=== PATIENT | female | born 1970 | race Caucasian/White ===

== ENCOUNTER 2016-06-12 15:00 | Emergency (ER) | payer SELFPAY ==
--- NOTE | 2016-06-21 06:57 | ER ---
ADMIT: 06/12/2016 RM/LOC: ER [facility] MR#: [id number] [address] [address] WILMAR JUAREZ [address] [place] [address] Emergency Room Report SEX: F AGE: 45 : 1970 DATE: 06/12/2016 ADDENDUM: This patient comes into the ER because she is having a severe migraine that she has had for the last 3 days. It is a normal type migraine for her. She states it is in her forehead and feels like it is behind both eyes. She also feels like her calcium level is really low because she is having numbness all over her body. She has had thyroid cancer and often has hypocalcemia. She is sensitive to light and sound. The patient has a normal physical exam. She is quite anxious. Oral mucosa is dry, but she does answer questions and speaks appropriately and is alert. She was very concerned about her calcium level. I did do a CBC and a BMP, and her calcium came back as 6.7. I did consult with Dr. Lewis concerning treatment of this patient. I plan to give the patient calcium gluconate IV; however, when I went to talk to the patient, she decided that she no longer wanted to be in the ER and wanted to go home. I did discuss with her leg at length. She was one who requested that I check her calcium level because she felt like she needed calcium IV, but she felt like she had been here long enough, and no longer wanted to stay in the ER. She was given Ativan 1 mg IV and Nubain 10 mg IV for her headache. She is to follow up with her doctor and continue with her oral calcium. Please see my T-sheet. JULIA Fernandes / Moisés Lewis MD / reshma JOB #: [id number] CC: Moisés Lewis MD, Attending Physician Marco Antonio Salmeron MD, Family Physician
== END 2016-06-12 16:55 | disposition home or self-care (01) ==
LOC: ER 15:00
DX: R51 Headache (principal); E83.51 Hypocalcemia; Z88.1 Allergy status to other antibiotic agents; Z88.5 Allergy status to narcotic agent

== ENCOUNTER 2016-06-26 17:35 | Emergency (ER) | payer SELFPAY ==
--- NOTE | 2016-06-27 14:07 | NUR ---
Referral from ER to assist with pt obtaining meds and assess for eligibility of other programs. Phone call to the number pt has listed and it ran about 20 times with no answer. Will attempt to call later.
--- NOTE | 2016-07-05 14:11 | ER ---
ADMIT: 06/26/2016 RM/LOC: ER [facility] MR#: [id number] [address] [address] WILMAR JUAREZ [address] [place] [address] Emergency Room Report SEX: F AGE: 45 : 1970 DATE: 06/26/2016 ADDENDUM: This patient comes to the ER because she had a seizure. She has a history of having a seizure disorder and she states most of her seizures are caused because her calcium is low after having thyroid cancer and being hypothyroid. She states she has been feeling like her calcium has been low, having tingling in her muscles. Her mother is with her and states she saw her have a seizure, and when she did, she hit the bathroom tile so hard with her head that it broke the tile. On physical exam, she is alert and oriented and she answers questions and speaks appropriately. She does not appear to be postictal. However, she does have a laceration on her tongue. She does have a contusion on the left side of her scalp. CT of her head and C-spine were negative for any acute findings. Her calcium was 7.6. She states in the past, she has gotten calcium IV which seems the best way to help with her symptoms and we did give her calcium gluconate. She also was given Ativan and Nubain. She is to follow up with her primary. DIAGNOSES: 1. Hypocalcemia. 2. Seizure disorder. 3. Scalp contusion. Please see my T-sheet. JULIA Fernandes / Moisés Lewis MD / reshma JOB #: [id number] CC: Moisés Lewis MD, Attending Physician Andria Varma MD, Family Physician
== END 2016-06-26 22:26 | disposition home or self-care (01) ==
LOC: ER 17:35
DX: S00.03XA Contusion of scalp, initial encounter (principal); G40.909 Epilepsy, unspecified, not intractable, without status epilepticus; E83.51 Hypocalcemia; F41.9 Anxiety disorder, unspecified; F17.210 Nicotine dependence, cigarettes, uncomplicated; Z85.850 Personal history of malignant neoplasm of thyroid; Z88.8 Allergy status to other drugs, medicaments and biological substances; Z79.899 Other long term (current) drug therapy; X58.XXXA Exposure to other specified factors, initial encounter

== ENCOUNTER 2016-08-26 21:50 | Emergency (ER) | payer SELFPAY ==
--- NOTE | 2016-08-30 13:09 | ER ---
ADMIT: 08/26/2016 RM/LOC: ER [facility] MR#: [id number] [address] [address] WILMAR JUAREZ [address] [place] [address] Emergency Room Report SEX: F AGE: 45 : 1970 DATE: 08/26/2016 HISTORY OF PRESENT ILLNESS: The patient is a 45-year-old female with past medical history of thyroid cancer, status post thyroidectomy and hypoparathyroidism with multiple attacks of hypercalcemia and seizure disorder. The patient was brought to the ER with chief complaint of generalized shaking, seizure disorder, which lasted about 2 to 3 minutes. Son at bedside and state its her baseline seizure-type in quality and duration. The patient in the ER had about less than 20 seconds of seizure-like activity and after that was postictal, airway was protected, there were no obvious signs of trauma and the patient did not fall and did not hit the head. PHYSICAL EXAMINATION: GENERAL: The patient was afebrile, fingerstick blood sugar was normal. HEAD AND NECK: Pupils are 3 mm reactive to light, the patient still is postictal and could not answer the question well, is confused. Neck is soft. CHEST: Clear bilaterally. HEART: Normal heart sounds. ABDOMEN: Soft. I did not see any spasms or contractures. The patient at the moment does not follow the commands. After the postictal was resolved about 20 minutes, I rechecked the patient. The patient was alert and oriented. Answering all the questions and did not complain of any trauma. The patient complains of moderate headache in the frontal area, which per the patient she had always had after the seizure attack. Son at the bedside and states the postictal duration and type of the seizure is very similar to all the previous seizures. The patient states the last few days she took the calcium supplements on and off and states that the last few days also she felt some numbness and tingling of the upper extremities. Further investigation showed the patient has white BC of 10.5 with hemoglobin of 14.1, and the patient has sodium of 136, potassium 3.6 with creatinine of 1.5, glucose of 161, and calcium level of 7.2. The rest of the lab works was noncontributory. The patient was offered ADMIT: 08/26/2016 RM/LOC: [facility] MR#: [id number] [facility] [address] [place] [address] Emergency Room Report SEX: F AGE: 45 : 1970 [place] for headaches, also calcium gluconate IV for hypercalcemia. The patient rejected taking the medication and states that it is cheaper to have the calcium pill as an outpatient and does not want to take it here in the hospital because it is more expensive. The patient wanted to be discharged home against medical advice. The patient did not want to get any further interventions and states she is okay. After discussing all the cons and pros and alternatives, the patient still wants to leave the hospital against medical advice. The patient left the hospital against medical advice. The patient was informed that she is more than welcome to come back whenever she deems necessary and also was advised to follow up with the primary doctor in the morning. The patient agreed to follow up with the primary doctor in morning. Wellington Abraham MD/ reshma JOB #: [id number] CC: Wellington Abraham MD, Attending Physician UNKNOWN, Family Physician
== END 2016-08-26 23:40 | disposition left against medical advice (07) ==
LOC: ER 21:50
DX: G40.909 Epilepsy, unspecified, not intractable, without status epilepticus (principal); E83.51 Hypocalcemia; F41.9 Anxiety disorder, unspecified; F32.9 Major depressive disorder, single episode, unspecified; Z79.899 Other long term (current) drug therapy; Z88.6 Allergy status to analgesic agent; E20.9 Hypoparathyroidism, unspecified; E03.9 Hypothyroidism, unspecified; Z90.89 Acquired absence of other organs; Z85.850 Personal history of malignant neoplasm of thyroid

== ENCOUNTER 2016-08-27 12:43 | Emergency (ER) | payer SELFPAY ==
--- NOTE | 2016-08-27 15:00 | NUR ---
Gave pt information on [facility] and [facility]. Pt states she is in the process of signing up for a medication assistance program. Gave pt a project care voucher to [employer] for her Seroquel. Her other medication is at [email or web address]. She will have her medication transfered to [facility] and will contact [facility] to request another voucher.
--- NOTE | 2016-08-29 02:42 | ER ---
ADMIT: 08/27/2016 RM/LOC: ER [facility] MR#: [id number] [address] [address] WIL[address] JUAREZ [address] [place] [address] Emergency Room Report SEX: F AGE: 45 : 1970 DATE: 08/27/2016 HISTORY OF PRESENT ILLNESS: The patient is a 45-year-old female, presents to the emergency room as a second visit within 24 hours complaining of generalized pain. She says she last night came into the ER, but left AMA and was told that she need a calcium because her calcium was low, and she says that this is what causes her to have seizures and she had a seizure last night plus a seizure this morning. When she arrives to the ER, there was no seizure and she is not postictal. REVIEW OF SYSTEMS: I did take review of system, which was only positive for anxiety and depression. PAST MEDICAL HISTORY: Seizure disorder, supposed to be taking Dilantin 100 mg four tablets daily, but have not had the medication because she says she does not have the money to buy and her mom does not have money either. Mom is at bedside. ALLERGIES: SHE HAS MULTIPLE ALLERGIES. THEY ARE: 1. MORPHINE. 2. TORADOL. 3. DARVOCET. 4. NSAIDS. 5. ULTRAM. 6. TYLENOL 3. 7. TRAMADOL. MEDICATIONS: Include: 1. Clonazepam. 2. Xanax. 3. Seroquel. 4. Levothyroxine. 5. Fentanyl 75 mcg. SOCIAL HISTORY: She smokes a pack a day. PHYSICAL EXAMINATION: GENERAL: On examination, she has negative [place] sign. She is mildly anxious, but very pleasant. VITAL SIGNS: Blood pressure 127/85 with a heart rate of 92, respirations 17, temp is 98.4, and O2 sats 99%. Physical examination is totally negative. LABORATORY DATA: Her labs were reviewed from last night. I did not repeat them. Her potassium was 3.6, glucose 161, her calcium was 7.7, and a ADMIT: 08/27/2016 RM/LOC: ER [facility] MR#: [id number] [address] [address] WILMAR JUAREZ [address] [place] [address] Emergency Room Report SEX: F AGE: 45 : 1970 corrective one 7.2, alkaline phosphatase 146, and creatinine of 1.5. So, when she arrived, I went ahead and I started her on calcium gluconate 2 g IV, Zofran 4 mg IV with Dilantin 2 mg p.o. [employer] consultation referral for her to get her medications. I wrote for Seroquel and Dilantin. I did not a level because she says she has been without it for about a week. She had a bag of fluids as well. CLINICAL IMPRESSION: Hypocalcemia with myalgia. At the time of release, she told me that she felt so much better and she was very happy with the treatment and the therapy she received. I encouraged her to go immediately and get her medications filled at the pharmacy. So, she has no more issues with seizures and follow up with her primary provider. JULIA Boyer / Jaziel Elam MD / reshma JOB #: [id number] CC: Jaziel Elam MD, Attending Physician Marco Antonio Salmeron MD, Family Physician
== END 2016-08-27 17:12 | disposition home or self-care (01) ==
LOC: ER 12:43
DX: E83.51 Hypocalcemia (principal); M79.1 Myalgia; G40.909 Epilepsy, unspecified, not intractable, without status epilepticus; F17.210 Nicotine dependence, cigarettes, uncomplicated; Z79.899 Other long term (current) drug therapy; Z88.8 Allergy status to other drugs, medicaments and biological substances